=== PATIENT | male | born 1985 | race Caucasian/White ===

== ENCOUNTER 2017-01-04 04:21 | Emergency (ER) | payer SELFPAY ==
[2017-01-04 04:57] VITALS: BP 114/77; PULSE 98; TEMP 98.7; BMI 20.9
[2017-01-04] MEDS ORDERED: DIPHTH,PERTUSS(ACELL),TET 0.5 ML DISP.SYRIN IM ONE (05:42)
--- NOTE | 2017-01-04 05:42 | PDOC ---
History of Present Illness - General Chief Complaint: Injury Stated Complaint: INJURY/ANKLE Time Seen by Provider: 01/04/17 04:50 - History of Present Illness Initial Comments: 01/04/17 05:38 CHIEF COMPLAINT: HISTORY OF PRESENT ILLNESS: No recent travel or sick contacts. PAST MEDICAL HISTORY: Denies past medical history FAMILY HISTORY: Denies SOCIAL HISTORY: Lives at home with ____. Occupation: . Denies tobacco, alcohol, illicit drug use. SURGICAL HISTORY: Denies ALLERGIES: No known drug allergies REVIEW OF SYSTEMS General/Constitutional: Denies fever or chills. Denies weakness, weight change. HEENT: Denies change in vision. Denies ear pain or discharge. Denies sore throat. Cardiovascular: Denies chest pain or shortness of breath. Respiratory: Denies cough, wheezing, or hemoptysis. Gastrointestinal: Denies nausea, vomiting, diarrhea or constipation. Denies rectal bleeding. Genitourinary: Denies dysuria, frequency, or change in urination. Musculoskeletal: Denies joint or muscle swelling or pain. Denies neck or back pain. Skin and breasts: Denies rash or easy bruising. Neurologic: Denies headache, vertigo, loss of consciousness, or loss of sensation. Psychiatric: Denies depression or anxiety. Endocrine: Denies increased thirst. Denies abnormal weight change. Hematologic/Lymphatic: Denies anemia, easy bleeding, or history of blood clots. Allergic/Immunologic: Denies hives or skin allergy. Denies latex allergy. PHYSICAL EXAM General Appearance: Well-appearing, appropriately dressed. No apparent distress , no intoxication. HEENT: EOMI, PERRLA, normal ENT inspection, normal voice, TMs normal, pharynx normal. No conjunctival pallor. No photophobia, scleral icterus. Neck: Supple. Trachea midline. No tenderness, rigidity, carotid bruit, stridor , lymphadenopathy, or thyromegaly. Respiratory/Chest: Lungs CTAB. No shortness of breath, chest tenderness, respiratory distress, accessory muscle use. No crackles, rales, rhonchi, stridor , wheezing, dullness Cardiovascular: RRR. S1, S2. No JVD, murmur, bradycardia, tachycardia. Vascular Pulses: Dorsalis-Pedis (R): 2+, Dorsalis-Pedis (L): 2+ Gastrointestinal/Abdominal: Normal bowel sounds. Abdomen soft, non-distended. No tenderness or rebound tenderness. No organomegaly, pulsatile mass, guarding , hernia, hepatomegaly, splenomegaly. Lymphatic: No adenopathy, tenderness. Musculoskeletal/Extremities: Normal inspection. FROM of all extremities, normal capillary refill. Pelvis Stable. No CVA tenderness. No tenderness to extremities, pedal edema, swelling, erythema or deformity. Integumentary: Appropriate color, dry, warm. No cyanosis, erythema, jaundice or rash Neurologic: filling technician II-XII intact. Fully oriented, alert. Appropriate mood/affect. Motor strength 5/5. No appreciable EOM palsy, facial droop or sensory deficit. Past History - Past History Allergies/Adverse Reactions: Allergies No Known Allergies Allergy (Verified 01/04/17 04:42) Home Medications: Ambulatory Orders Oxycodone HCl/Acetaminophen [Percocet 5-325 mg Tablet] 1 - 2 tab PO Q6H PRN #20 tab MDD 6 01/04/17 Immunization Status Up to Date: Yes - Social History Smoking History: Yes Smoking Status: Current every day smoker Number of Cigarettes Smoked Per Day: 10 Drug Use: marijuana *Physical Exam - Vital Signs Last Vital Signs Temp Pulse Resp BP Pulse Ox 98.7 F 98 H 14 114/77 97 01/04/17 04:43 01/04/17 04:43 01/04/17 04:43 01/04/17 04:43 01/04/17 04:43 *DC/Admit/Observation/Transfer Diagnosis at time of Disposition: Fracture of fibula Qualifiers: Encounter type: initial encounter Fibula location: distal Fracture type: closed Fracture morphology: unspecified fracture morphology Laterality: left Qualified Code(s): S82.832A - Other fracture of upper and lower end of left fibula, initial encounter for closed fracture - Discharge Dispostion Disposition: HOME Condition at time of disposition: Stable Admit: No - Prescriptions Prescriptions: Oxycodone HCl/Acetaminophen [Percocet 5-325 mg Tablet] 1 - 2 tab PO Q6H PRN #20 tab MDD 6 PRN Reason: Pain - Referrals Referrals: Oumar Schaeffer MD [Staff Physician] - - Patient Instructions Printed Discharge Instructions: DI for Shinbone Fracture, DI for Ankle Fracture Additional Instructions: Please take medications as prescribed. Do not drive or operate machinery while taking Percocet. Follow up orthopedics this week as discussed. If you experience any loss of sensation, numbness, tingling, or swelling of your leg, please return to the ER.
[2017-01-04] MEDS ORDERED: morphine CARPU-JECT 2 MG/1 ML DISP.SYRIN IVPUSH ONE ×2 (05:48→06:40)
[2017-01-04] MEDS ORDERED: morphine CARPU-JECT 2 MG/1 ML DISP.SYRIN ONE (05:52)
--- NOTE | 2017-01-04 05:52 | PDOC ---
*Physical Exam - Vital Signs Last Vital Signs Temp Pulse Resp BP Pulse Ox 98.7 F 98 H 14 114/77 97 01/04/17 04:43 01/04/17 04:43 01/04/17 04:43 01/04/17 04:43 01/04/17 04:43 Medical Decision Making - Medical Decision Making 01/04/17 05:52 agree with care from MAYELIN Dhillon *DC/Admit/Observation/Transfer Diagnosis at time of Disposition: Fracture, fibula - Prescriptions Prescriptions: Oxycodone HCl/Acetaminophen [Percocet 5-325 mg Tablet] 1 - 2 tab PO Q6H PRN #20 tab MDD 6 PRN Reason: Pain - Referrals Referrals: Oumar Schaeffer MD [Staff Physician] - - Patient Instructions Printed Discharge Instructions: DI for Shinbone Fracture, DI for Ankle Fracture Additional Instructions: Please take medications as prescribed. Do not drive or operate machinery while taking Percocet. Follow up orthopedics this week as discussed. If you experience any loss of sensation, numbness, tingling, or swelling of your leg, please return to the ER.
[2017-01-04] MEDS ORDERED: morphine CARPU-JECT 4 MG/1 ML DISP.SYRIN ONE (06:44)
--- NOTE | 2017-01-04 06:58 | PDOC ---
History of Present Illness - General Chief Complaint: Injury Stated Complaint: INJURY/ANKLE Time Seen by Provider: 01/04/17 04:50 - History of Present Illness Initial Comments: 01/04/17 06:58 CHIEF COMPLAINT: ankle pain HISTORY OF PRESENT ILLNESS: 31 yo M with no PMH presents to ED with L ankle pain. Patient reports that he was walking down stairs when his father called him on his cell phone and he tripped and fell down the stairs and twisted ankle and fell into a rosebush. PAST MEDICAL HISTORY: Denies past medical history FAMILY HISTORY: Denies SOCIAL HISTORY: Denies tobacco, alcohol, illicit drug use. SURGICAL HISTORY: Denies ALLERGIES: No known drug allergies REVIEW OF SYSTEMS General/Constitutional: Denies fever or chills. Denies weakness, weight change. HEENT: Denies change in vision. Denies ear pain or discharge. Denies sore throat. Cardiovascular: Denies chest pain or shortness of breath. Respiratory: Denies cough, wheezing, or hemoptysis. Gastrointestinal: Denies nausea, vomiting, diarrhea or constipation. Denies rectal bleeding. Genitourinary: Denies dysuria, frequency, or change in urination. Musculoskeletal: Denies joint or muscle swelling or pain. Denies neck or back pain. Skin and breasts: Denies rash or easy bruising. Neurologic: Denies headache, vertigo, loss of consciousness, or loss of sensation. PHYSICAL EXAM General Appearance: Well-appearing, appropriately dressed. No apparent distress. HEENT: EOMI, PERRLA, normal ENT inspection, normal voice, TMs normal, pharynx normal. No conjunctival pallor. No photophobia, scleral icterus. Neck: Supple. Trachea midline. No tenderness, rigidity, carotid bruit, stridor , lymphadenopathy, or thyromegaly. Respiratory/Chest: Lungs CTAB. No shortness of breath, chest tenderness, respiratory distress, accessory muscle use. No crackles, rales, rhonchi, stridor , wheezing, dullness Cardiovascular: RRR. S1, S2. No JVD, murmur, bradycardia, tachycardia. Vascular Pulses: Dorsalis-Pedis (R): 2+, Dorsalis-Pedis (L): 2+ Gastrointestinal/Abdominal: Normal bowel sounds. Abdomen soft, non-distended. No tenderness or rebound tenderness. No organomegaly, pulsatile mass, guarding , hernia, hepatomegaly, splenomegaly. Lymphatic: No adenopathy, tenderness. Musculoskeletal/Extremities: Marked swelling to L lateral malleolus. Normal inspection. FROM of all extremities, normal capillary refill. Pelvis Stable. No CVA tenderness. No tenderness to extremities, pedal edema, swelling, erythema or deformity. Integumentary: Superficial abrasions to L upper and lower extremities. Appropriate color, dry, warm. No cyanosis, erythema, jaundice or rash Neurologic: doctor's assistant II-XII intact. Fully oriented, alert. Appropriate mood/affect. Motor strength 5/5. No appreciable EOM palsy, facial droop or sensory deficit. Past History - Past Medical History Allergies/Adverse Reactions: Allergies Allergy/AdvReac Type Severity Reaction Status Date / Time No Known Allergies Allergy Verified 01/04/17 04:42 Home Medications: Ambulatory Orders Oxycodone HCl/Acetaminophen [Percocet 5-325 mg Tablet] 1 - 2 tab PO Q6H PRN #20 tab MDD 6 01/04/17 Asthma: Yes - Surgical History Lung Surgery: (SPONTANEUS RT PNEUMO.) - Immunization History Td Vaccination: (2012) Immunization Up to Date: Yes - Psycho/Social/Smoking Cessation Hx Anxiety: No Suicidal Ideation: No Smoking Status: Yes Smoking History: Current every day smoker Have you smoked in the past 12 months: Yes Number of Cigarettes Smoked Daily: 10 Information on smoking cessation initiated: No Hx Alcohol Use: Yes Drug/Substance Use Hx: No Substance Use Type: None *Physical Exam - Vital Signs Last Vital Signs Temp Pulse Resp BP Pulse Ox 98.7 F 98 H 14 114/77 97 01/04/17 04:43 01/04/17 04:43 01/04/17 04:43 01/04/17 04:43 01/04/17 04:43 ED Treatment Course - RADIOLOGY Radiology Studies Ordered: Category Date Time Status ANKLE & FOOT-LEFT* [RAD] Stat Radiology 01/04/17 05:42 Taken - Medications Given in the ED: ED Medications Discontinued Medications Generic Name Dose Route Start Last Admin Trade Name Freq PRN Reason Stop Dose Admin Diphtheria/Tetanus/Acell Pertussis 0.5 ml 01/04/17 05:42 01/04/17 05:57 Boostrix - IM 01/04/17 05:43 0.5 ml .ONCE ONE Administration Morphine Sulfate 1 mg 01/04/17 05:48 01/04/17 05:57 Morphine Injection - IVPUSH 01/04/17 05:49 1 mg ONCE ONE Administration Morphine Sulfate 2 mg 01/04/17 06:40 01/04/17 06:45 Morphine Injection - IVPUSH 01/04/17 06:41 2 mg ONCE ONE Administration Medical Decision Making - Medical Decision Making 01/04/17 07:01 31 yo M with no PMH presents to ED with L ankle pain. -1 mg morphine -L ankle/ft x-ray Patient continues to c/o of severe pain. X-ray positive for distal fibula fracture -2mg morphine Ankle splinted in posterior splint with orthoglass. *DC/Admit/Observation/Transfer Diagnosis at time of Disposition: Fracture, fibula Qualifiers: Encounter type: initial encounter Fibula location: distal Fracture type: closed Fracture morphology: unspecified fracture morphology Laterality: left Qualified Code(s): S82.832A - Other fracture of upper and lower end of left fibula, initial encounter for closed fracture - Discharge Dispostion Admit: No - Prescriptions Prescriptions: Oxycodone HCl/Acetaminophen [Percocet 5-325 mg Tablet] 1 - 2 tab PO Q6H PRN #20 tab MDD 6 PRN Reason: Pain - Referrals Referrals: Oumar Schaeffer MD [Staff Physician] - - Patient Instructions Printed Discharge Instructions: DI for Shinbone Fracture, DI for Ankle Fracture Additional Instructions: Please take medications as prescribed. Do not drive or operate machinery while taking Percocet. Follow up orthopedics this week as discussed. If you experience any loss of sensation, numbness, tingling, or swelling of your leg, please return to the ER. - Post Discharge Activity
== END 2017-01-04 07:03 ==
LOC: JER 04:21
CPT/HCPCS: 73610-TC-LT; 73630-TC-LT; 90715; 99281-25

== ENCOUNTER 2017-06-26 03:04 | Emergency (ER) | payer OTHER ==
[2017-06-26 03:54] VITALS: TEMP 98.4; BMI 21.6
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
[2017-06-26] MEDS ORDERED: ACETAMINOPHEN 325 MG TABLET (FP) PO ONE (04:55)
[2017-06-26] MEDS ORDERED: TETANUS IMMUNE GLOBULIN 250 UNITS DISP.SYRIN IM ONE (04:56)
[2017-06-26] MEDS ORDERED: ACETAMINOPHEN 325 MG TABLET (FP) ONE (05:13)
[2017-06-26 05:31] LABS: URINE APPEARANCE CLEAR; URINE BILIRUBIN NEGATIVE (NEGATIVE); URINE BLOOD NEGATIVE (NEGATIVE); URINE COLOR LTYELLOW; URINE GLUCOSE (UA) 3+ (NEGATIVE); URINE KETONE 1+ (NEGATIVE); URINE LEUK ESTERASE NEGATIVE (NEGATIVE); URINE NITRITE NEGATIVE (NEGATIVE); URINE PROTEIN NEGATIVE (NEGATIVE); URINE UROBILINOGEN NEGATIVE mg/dL (0.2-1.0)
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
[2017-06-26] MEDS ORDERED: TETANUS AND DIPHTHERIA TOXOID 0.5 ML DISP.SYRIN IM ONE (05:48)
[2017-06-26 05:58] VITALS: BP 125/82; PULSE 98
== END 2017-06-26 05:57 | disposition home or self-care (01) ==
LOC: JER 03:04
DX: S09.8XXA Other specified injuries of head, initial encounter (principal); S00.01XA Abrasion of scalp, initial encounter; S50.312A Abrasion of left elbow, initial encounter; S50.311A Abrasion of right elbow, initial encounter; Y04.2XXA Assault by strike against or bumped into by another person, initial encounter; Y93.89 Activity, other specified; Y92.038 Other place in apartment as the place of occurrence of the external cause; Y07.04 Female partner, perpetrator of maltreatment and neglect
CPT/HCPCS: 70450-TC; 71046-TC; 71111-TC; 81003; 99281-25

== ENCOUNTER 2019-04-06 02:49 | Emergency (ER) | payer OTHER ==
[2019-04-06] MEDS ORDERED: ASPIRIN 81 MG CHEWABLE TABLETS PO ONE (02:56)
[2019-04-06] MEDS ORDERED: ACETAMINOPHEN 500 MG TABLET (FP) PO ONE (02:59)
[2019-04-06] MEDS ORDERED: ACETAMINOPHEN 325 MG TABLET (FP) ONE (03:02)
[2019-04-06 03:06] VITALS: BP 133/85; TEMP 98.5; BMI 20.9
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
[2019-04-06 04:25] VITALS: PULSE 92
--- NOTE | 2019-04-06 11:29 | EKG ---
Test Reason : Blood Pressure : / mmHG Vent. Rate : 115 BPM Atrial Rate : 115 BPM P-R Int : 166 ms QRS Dur : 096 ms QT Int : 324 ms P-R-T Axes : 078 089 075 degrees QTc Int : 448 ms SINUS TACHYCARDIA NONSPECIFIC ST ABNORMALITY ABNORMAL ECG WHEN COMPARED WITH ECG OF 26-OCT-2009 05:14, VENT. RATE HAS INCREASED BY 43 BPM Confirmed by RAMIRO KELLOGG MD ([id number]) on 04/06/2019 11:29:02 AM Referred By: Confirmed By:RAMIRO KELLOGG MD
== END 2019-04-06 04:37 | disposition home or self-care (01) ==
LOC: JER 02:49
DX: R07.89 Other chest pain (principal); E11.9 Type 2 diabetes mellitus without complications; Z79.84 Long term (current) use of oral hypoglycemic drugs; J45.909 Unspecified asthma, uncomplicated; F17.210 Nicotine dependence, cigarettes, uncomplicated
CPT/HCPCS: 71046-TC-FY; 71101-TC-RT-FY; 93005; 93010; 99283-25

== ENCOUNTER 2020-01-28 14:20 | Emergency (ER) | payer OTHER ==
[2020-01-28 14:25] VITALS: BP 118/88; PULSE 91; TEMP 97.8; BMI 20.5
--- NOTE | 2020-01-28 14:26 | PDOC ---
Rapid Medical Evaluation Time Seen by Provider: 01/28/20 14:23 Medical Evaluation: Allergies Allergy/AdvReac Type Severity Reaction Status Date / Time No Known Allergies Allergy Verified 01/28/20 14:22 01/28/20 14:24 CC: worsening lump to upper right eyelid. was on abx and started to improve but now worsening. Denies fever, visual changes and states last BGM was 170s yesterday. No other complaints Exam: noted elongated raised erythematous fluctulant mass to outer right eyelid crease, globe visualized without involvement Plan:I&D Discharge Disposition - Diagnosis Abscess - Referrals - Patient Instructions - Post Discharge Activity
--- NOTE | 2020-01-28 14:39 | PDOC ---
History of Present Illness - General Chief Complaint: Eye Problem Stated Complaint: RT EYE PAIN Time Seen by Provider: 01/28/20 14:23 History Source: Patient Exam Limitations: Clinical Condition - History of Present Illness Initial Comments: 01/28/20 14:50 Patient with no significant past medical history present with complaint of abscess to right eyelid which has been persistent for over 5 days now despite being treated on Keflex and Bactrim antibiotics with warm compresses. Patient was seen in urgent care 5 days ago started on antibiotics and again 3 days ago for reassessment and was advised he will need ophthalmology drainage of the abscess as abscess is very close to the eye. Denies blurry vision, change in vision, eye pain, fever, chills. Denies any other symptoms Is this a multiple visit Asthma Patient?: No Timing/Duration: other (5 days) Past History - Medical History Allergies/Adverse Reactions: Allergies Allergy/AdvReac Type Severity Reaction Status Date / Time No Known Allergies Allergy Verified 01/28/20 14:22 Home Medications: Ambulatory Orders Oxycodone HCl/Acetaminophen [Percocet 5-325 mg Tablet] 1 - 2 tab PO Q6H PRN #20 tab MDD 6 01/04/17 Cyclobenzaprine HCl 10 mg PO DAILY PRN 06/26/17 Ibuprofen [Ibu] 600 mg PO TID #20 tablet 11/15/19 Asthma: Yes COPD: No Diabetes: Yes - Surgical History Lung Surgery: (SPONTANEUS RT PNEUMO.) - Immunization History Td Vaccination: (2012) Immunization Up to Date: No - Psycho-Social/Smoking History Smoking Status: Yes Smoking History: Current every day smoker Have you smoked in the past 12 months: Yes Number of Cigarettes Smoked Daily: 3 Information on smoking cessation initiated: No - Substance Abuse Hx (Audit-C & DAST Scrn) How often the patient has a drink containing alcohol: Monthly or less Number of drinks the patient has on a typical day: 1 or 2 How often the patient has six or more drinks on one occasion: Never Score: In Men: 4 or > Positive; In Women: 3 or > Positive: 1 Screen Result (Pos requires Nsg. Audit-10AR): Negative In the last yr the pt used illegal drug/Rx for NonMed reason: No Score: Yes response is considered Positive: 0 Screen Result (Positive result requires Nsg. DAST-10): Negative Review of Systems - Review of Systems Able to Perform ROS?: Yes Is the patient limited [place] proficient: No Constitutional: No: Chills, Fever, Malaise HEENTM: Yes: Symptoms Reported, See HPI, Eye Pain (Abscess to right upper eyelid). No: Blurred Vision, Tearing, Recent change in vision, Double Vision, Cataracts, Ear Pain, Ocular Prothesis, Ear Discharge, Nose Pain, Nose Congestion, Tinnitus, Nose Bleeding, Hearing Loss, Throat Pain, Throat Swelling, Mouth Pain, Dental Problems, Difficulty Swallowing, Mouth Swelling, Other Respiratory: No: Symptoms reported, See HPI, Cough, Orthopnea, Shortness of Breath, SOB with Exertion, SOB at Rest, Stridor, Wheezing, Productive cough, Hemoptysis, Other Cardiac (ROS): No: Symptoms Reported ABD/GI: No: Symptoms Reported Musculoskeletal: No: Symptoms Reported Integumentary: Yes: Symptoms Reported, See HPI, Lumps (abscess to right upper eyelid) Neurological: No: Symptoms reported All Other Systems: Reviewed and Negative *Physical Exam - Vital Signs Last Vital Signs Temp Pulse Resp BP Pulse Ox 97.8 F 91 H 20 118/88 100 01/28/20 14:22 01/28/20 14:22 01/28/20 14:22 01/28/20 14:22 01/28/20 14:22 - Physical Exam 01/28/20 14:53 GENERAL: Well developed, well nourished. Awake and alert. No acute distress. HEENT: 2 cm area of hard induration to right upper eyelid with mild surrounding erythema to abscess. Conjunctive are normal bilateral. Pupil equal reflective to light bilateral. Extraocular muscle intact bilateral. Normocephalic, atraumatic. Sclera are non-icteric. Moist mucous membranes. Oropharynx is clear. NECK: Supple. Full ROM. PULMONARY: No evidence of respiratory distress. MUSCULOSKELETAL Normal range of motion at all joints. SKIN: Warm and dry. Normal capillary refill. 2 cm area of hard induration to right upper eyelid with mild surrounding erythema to abscess NEUROLOGICAL: Alert, awake, appropriate. Gait is normal without ataxia. PSYCHIATRIC: Cooperative. Good eye contact. Appropriate mood General Appearance: Yes: Nourished, Appropriately Dressed. No: Apparent Distress Medical Decision Making - Medical Decision Making 01/28/20 14:51 Patient with no significant past medical history present with complaint of abscess to right eyelid which has been persistent for over 5 days now despite being treated on Keflex and Bactrim antibiotics with warm compresses. Patient was seen in urgent care 5 days ago started on antibiotics and again 3 days ago for reassessment and was advised he will need ophthalmology drainage of the abscess as abscess is very close to the eye. Denies blurry vision, change in vision, eye pain, fever, chills. Denies any other symptoms Exam significant for 2 cm area of hard induration to right upper eyelid with mild surrounding erythema to abscess. Conjunctive are normal bilateral. Pupil equal reflective to light bilateral. Extraocular muscle intact bilateral. Given location of abscess, patient will need to be seen by occup therapist for I&D of abscess. Called occup therapist Dr. Mc Grier office who agrees to see patient this afternoon for assessment and possible drainage of abscess. Patient stable for discharge to go straight to ophthalmology office to be seen Discharge - Discharge Information Problems reviewed: Yes Clinical Impression/Diagnosis: Abscess Condition: Stable Disposition: HOME - Admission No - Follow up/Referral Referrals: Mc Grier MD [Staff Physician] - - Patient Discharge Instructions Patient Printed Discharge Instructions: DI for Skin Abscess Additional Instructions: Go to referred ophthalmology office right now for drainage of the abscess - Post Discharge Activity
== END 2020-01-28 14:47 | disposition home or self-care (01) ==
LOC: JERFT 14:20
DX: H00.031 Abscess of right upper eyelid (principal)
CPT/HCPCS: 99282-25

== ENCOUNTER 2021-05-11 11:38 | Emergency (ER) | payer OTHER ==
[2021-05-11 12:11] VITALS: BP 133/90; PULSE 107; TEMP 98.3; BMI 20.9
[2021-05-11] MEDS ORDERED: METOCLOPRAMIDE HCL INJECTION 10 MG/2 ML VIAL IVPB ONE (14:00)
[2021-05-11] MEDS ORDERED: SODIUM CHLORIDE 1,000 ML IV STA (14:00)
[2021-05-11] MEDS ORDERED: METOCLOPRAMIDE HCL INJECTION 10 MG/2 ML VIAL ONE (14:23)
[2021-05-11 15:52] LABS: BASO % 0.7 % (0-2.0); EOS % 0.6 % (0-4.5); HEMATOCRIT 51.4 % (35.4-49); HEMOGLOBIN 17.7 GM/dL (11.7-16.9); LYMPH % 22.3 % (8-40); MCH 30.8 pg (25.7-33.7); MCHC 34.4 g/dl (32.0-35.9); MEAN CELL VOLUME 89.4 fl (80-96); MEAN PLT VOLUME 8.1 fl (7.5-11.1); NEUT % 71.4 % (42.8-82.8); PLATELET COUNT 312 10^3/uL (134-434); RBC 5.75 M/mm3 (4.00-5.60); RDW 12.6 % (11.9-15.9); WHITE BLOOD COUNT 9.2 K/mm3 (4.0-10.0)
[2021-05-11 16:00] LABS: CHLORIDE 100 mmol/L (98-107); SODIUM 136 mmol/L (136-145)
[2021-05-11 16:02] LABS: ALBUMIN 4.4 g/dl (3.4-5.0); CALCIUM 9.3 mg/dL (8.5-10.1)
[2021-05-11 16:03] LABS: ANION GAP 11 MMOL/L (8-16); BLOOD UREA NITROGEN 12.2 mg/dL (7-18); CO2 26 mmol/L (21-32); GLUCOSE,RANDOM 246 mg/dL (74-106); LIPASE 111 U/L (73-393)
[2021-05-11 16:06] LABS: CREATININE 0.8 mg/dL (0.55-1.3); SGOT/AST 43 U/L (15-37); SGPT/ALT 45 U/L (13-61)
[2021-05-11 16:08] LABS: ALK PHOS 91 U/L (45-117)
[2021-05-11 18:07] LABS: EPI CELLS 3 /uL (0-25.1); HYALINE CASTS 1 /uL (0-3.1); PH,URINE 5.5 (5.0-8.0); URINE APPEARANCE CLEAR; URINE BACTERIA 1 /uL (0-1359); URINE BILIRUBIN NEGATIVE (NEGATIVE); URINE COLOR YELLOW; URINE GLUCOSE (UA) 3+ (NEGATIVE); URINE KETONE 3+ (NEGATIVE); URINE LEUK ESTERASE NEGATIVE (NEGATIVE); URINE NITRITE NEGATIVE (NEGATIVE); URINE PROTEIN 1+ (NEGATIVE); URINE RBC 4 /uL (0-23.9); URINE WBC 3 /uL (0-25.8)
== END 2021-05-11 16:48 | disposition home or self-care (01) ==
LOC: JER 11:38
PROC: 3E033GC Introduction of Other Therapeutic Substance into Peripheral Vein, Percutaneous Approach (ICD-10-PCS; principal; 2021-05-11)
DX: E86.0 Dehydration (principal); E11.9 Type 2 diabetes mellitus without complications
CPT/HCPCS: 36415; 80053; 81003; 82010; 82550; 82962; 83690; 84484; 85025; 99284-25; C9803; U0003; U0005